=== PATIENT | female | born 1980 | race Caucasian/White ===

== ENCOUNTER → 2017-04-03 | Outpatient (CLI) | payer OTHER ==
--- NOTE | ~2017-04-03 | MY29 ---
[facility] A Service of [facility] RADIOLOGY TEXT RESULTS PATIENT: NIKHIL ONTIVEROS LOCATION: [facility] : 78 UNIT #: [id number] AGE: [address]: Vanessa Drummond MD SEX: F ORDER DR: [id number] [address] [id number] O MR#: [id number] Acc #: [id number] NAME: NIKHIL ONTIVEROS : 1980 SEX: F STUDY DATE/TIME: 04/03/2017 9:49 UNIT: [facility] ROOM: STUDY DESCRIPTION: [facility] SCREENING W/ CAD BILAT Attending Physician: Vanessa Drummond M.D. Ordering Physician: Vanessa Drummond M.D. Primary Care Physician: Vanessa Drummond M.D. MEDICAL IMAGING REPORT This report is preliminary unless electronic signature is present EXAM Bilateral digital screening mammogram with CAD 04/03/2017. INDICATIONS Routine screening. No reported problems, and no personal or family history of breast cancer. No surgeries. TECHNIQUE CC and MLO views of breasts were obtained reviewed with an FDA-approved CAD device. COMPARISON None; this is her baseline study. FINDINGS Breast parenchyma is composed of scattered fibroglandular densities. The pattern is symmetric. No dominant nodule, mass, or suspicious cluster of microcalcifications. IMPRESSION Negative baseline screening mammogram; 1-year followup recommended. Patients over the age of 40 are entered into a reminder system with target due date for the next mammogram. A result letter will also be sent to the patient. BIRADS: 1 Negative Dictated by... Devan Khoury M.D. THIS IS AN ELECTRONICALLY VERIFIED REPORT [facility] A Service of [facility] RADIOLOGY TEXT RESULTS PATIENT: NIKHIL ONTIVEROS LOCATION: [facility] : 78 UNIT #: [id number] AGE: [address]: Vanessa Drummond MD SEX: F ORDER DR: Devan Khoury M.D. at 04/03/2017 6:07 PM ANJELICA/mitch TD: 04/03/2017 17:33 JOB #: [id number] MEDICAL IMAGING REPORT Page 1 of 1 COPY
== END | disposition home or self-care (01) ==
LOC: CWCC 09:34
DX: Z12.31 Encounter for screening mammogram for malignant neoplasm of breast (principal)
CPT/HCPCS: G0202